=== PATIENT | male | born 1975 | race American Indian/Alaskan Native ===

== ENCOUNTER 2018-10-01 15:28 | Emergency (ER) | payer OTHER ==
--- NOTE | 2018-10-01 16:12 | Emergency Department Report ---
Blank Doc - Documentation Documentation: This is a 43-year-old male that presents with left shoulder pain. Denies any injuries or trauma. Stated radiates to left upper arm. This initial assessment/diagnostic orders/clinical plan/treatment(s) is/are subject to change based on patient's health status, clinical progression and re- assessment by fellow clinical providers in the ED. Further treatment and workup at subsequent clinical providers discretion. Patient/guardians urged not to elope from the ED as their condition may be serious if not clinically assessed and managed. Initial orders include: 1- Patient sent to [facility] for further evaluation and treatment 2- xray
[2018-10-01 16:13] VITALS: BP 117/77
--- NOTE | 2018-10-01 17:44 | XRay Report ---
PROCEDURE: XR SHOULDER 2+V LT TECHNIQUE: AP, Y, and oblique views of the left shoulder HISTORY: Left arm pain COMPARISONS: None . FINDINGS: There is no evidence of acute fracture or dislocation. Joint spaces are maintained and bony mineraliz ation is normal. Soft tissues are unremarkable. IMPRESSION: No acute abnormality identified in the left shoulder. This document is electronically signed by Romelia Pierce MD., October 01 2018 05:42:11 PM ET
--- NOTE | 2018-10-01 17:47 | Emergency Department Report ---
ED Upper Extremity Inj HPI - General Chief Complaint: Extremity Problem,Nontraumatic Stated Complaint: LFT ARM PAIN Time Seen by Provider: 10/01/18 16:11 Source: patient Mode of arrival: Ambulatory Limitations: No Limitations - History of Present Illness Initial Comments: She is a 43-year-old -[place] female presents with left shoulder pain for one week. Patient reports pain is worse near the before meals joint and painful range of motion. He also reports some tingling in the tips of third and fourth fingers. Patient states he thought he slept on it wrong or injure while working out. He is applying heating pad which made symptoms worse. He denies recent injury, swelling, bruising, warmth to the area. MD Complaint: Injury to:: left, shoulder Onset/Timin -: week(s) Other Extremity Injury: Shoulder: Left Other Injuries: none Severity scale (0 -10): 4 Improves With: none, other Worsens With: movement of extremity, other (heat therapy) Associated Symptoms: numbness (tips of 3rd & 4th fingers) Treatments Prior to Arrival: other (heat therapy) - Related Data Previous Rx's Medication Instructions Recorded Last Taken Type Ibuprofen [Motrin 800 MG tab] 800 mg PO Q8HR PRN #20 tablet 10/01/18 Unknown Rx Menthol/Camphor [[place] 18 gm TP Q4H PRN #1 oint...g. 10/01/18 Unknown Rx Ointment] Allergies Allergy/AdvReac Type Severity Reaction Status Date / Time No Known Allergies Allergy Unverified 10/01/18 15:32 ED Review of Systems ROS: Stated complaint: LFT ARM PAIN Other details as noted in HPI Constitutional: denies: chills, fever Respiratory: denies: cough, shortness of breath, wheezing Cardiovascular: denies: chest pain, palpitations Gastrointestinal: denies: abdominal pain, nausea, diarrhea Musculoskeletal: arthralgia (left shoulder pain). denies: back pain, joint swelling Skin: denies: rash, lesions Neurological: denies: headache, weakness, paresthesias Psychiatric: denies: anxiety, depression ED Past Medical Hx - Past Medical History Previous Medical History?: No - Surgical History Past Surgical History?: No - Social History Smoking Status: Current Every Day Smoker Substance Use Type: None - Medications Home Medications: Home Medications Medication Instructions Recorded Confirmed Last Taken Type Ibuprofen [Motrin 800 MG tab] 800 mg PO Q8HR PRN #20 tablet 10/01/18 Unknown Rx Menthol/Camphor [[place] 18 gm TP Q4H PRN #1 oint...g. 10/01/18 Unknown Rx Ointment] ED Physical Exam - General Limitations: No Limitations General appearance: alert, in no apparent distress - Respiratory Respiratory exam: Present: normal lung sounds bilaterally. Absent: respiratory distress - Cardiovascular Cardiovascular Exam: Present: regular rate, normal rhythm. Absent: systolic murmur, diastolic murmur, rubs, gallop - GI/Abdominal GI/Abdominal exam: Present: soft, normal bowel sounds - Expanded Upper Extremity Exam Left Shoulder Exam: Present: full ROM (pain with range of motion). Absent: tenderness, swelling, abrasion, laceration, ecchymosis, deformity, crepidus, dislocation, erythema, tenderness over AC joint Upper Arm exam: Present: normal inspection, full ROM Elbow exam: Present: normal inspection, full ROM Forearm Wrist exam: Present: normal inspection, full ROM Hand Wrist exam: Present: full ROM. Absent: tenderness, swelling, abrasion, laceration, ecchymosis, deformity, crepidus, dislocation, erythema, amputation, nail avulsion, subungual hematoma Neuro motor exam: Present: wrist extension intact, thumb opposition intact, thumb IP flexion intact, thumb adduction intact, fingers 2-5 abduction intact Neurosensory exam: Present: radial nerve intact, ulnar nerve intact, median nerve intact Vascular: Present: normal capillary refill, radial pulse (+2) - Neurological Exam Neurological exam: Present: alert, oriented X3 - Expanded Neurological Exam Expanded Patient oriented to: Present: person, place, time Speech: Present: fluid speech Sensory exam: Upper Extremity Light Touch: Normal, Upper Extremity Pin Prick: Normal, Upper Extremity Temperature: Normal, UE 2 Point Discrimination: Normal Motor strength exam: LUE: 5 DTR: bicep (L): 4+, tricep (L): 4+ Best Eye Response (Arnoldo): (4) open spontaneously Best Motor Response (Arnoldo): (6) obeys commands Best Verbal Response (Willard): (5) oriented Willard Total: 15 - Psychiatric Psychiatric exam: Present: normal affect, normal mood - Skin Skin exam: Present: warm, dry, intact, normal color. Absent: rash ED Course Vital Signs 10/01/18 16:11 Temperature 98.5 F Pulse Rate 78 Respiratory 16 Rate Blood Pressure 117/77 O2 Sat by Pulse 99 Oximetry ED Medical Decision Making - Radiology Data Radiology results: report reviewed PROCEDURE: XR SHOULDER 2+V LT TECHNIQUE: AP, Y, and oblique views of the left shoulder HISTORY: Left arm pain COMPARISONS: None . FINDINGS: There is no evidence of acute fracture or dislocation. Joint spaces are maintained and bony mineralization is normal. Soft tissues are unremarkable. IMPRESSION: No acute abnormality identified in the left shoulder. - Medical Decision Making Patient was examined by me. Vitals are normal and patient is in no acute distress. Obtained a x-rays of left shoulder. X-rays dictated by radiologist and report reviewed by myself with no acute findings. Patient informed of results. Arthralgia Start ibuprofen and tiger balm for pain. Referral to Orthopedic Surgeon for follow up if symptoms are not improving as discussed. Plan discussed with patient to discharge home and treat outpatient. He agrees with ER plan. Patient discharged home in stable condition. Follow up with PCP in 2-3 days. Critical care attestation.: If time is entered above; I have spent that time in minutes in the direct care of this critically ill patient, excluding procedure time. ED Disposition Clinical Impression: Pain of left shoulder joint on movement Shoulder arthralgia Qualifiers: Laterality: left Qualified Code(s): M25.512 - Pain in left shoulder Disposition: DC-01 TO HOME OR SELFCARE Is pt being admited?: No Does the pt Need Aspirin: No Condition: Stable Instructions: Arthralgia (ED) Additional Instructions: Rest Use ice or heat on affected area for 20 minutes and off for 2 hours. Take pain medication as needed for pain. Follow up with Primary Care Provider in 2-3 days. Prescriptions: Ibuprofen [Motrin 800 MG tab] 800 mg PO Q8HR PRN #20 tablet PRN Reason: Pain , Severe (7-10) Menthol/Camphor [[place] Ointment] 18 gm TP Q4H PRN #1 oint...g. PRN Reason: Pain, Moderate (4-6) Referrals: [facility] [Other] - 3-5 Days LUDIVINA AVITIA MD [Staff Physician] - 3-5 Days [facility] [Outside] - 3-5 Days [facility] [Outside] - 3-5 Days Forms: Work/School Release Form(ED) Time of Disposition: 17:51
== END 2018-10-01 18:22 | disposition home or self-care (01) ==
LOC: ED 15:28
DX: M25.512 Pain in left shoulder (principal); F17.200 Nicotine dependence, unspecified, uncomplicated
CPT/HCPCS: 99283